=== PATIENT | male | born 1995 | race Caucasian/White ===

== ENCOUNTER 2022-10-10 00:38 | Emergency (ER) | payer BC, OTHER ==
[2022-10-10] MEDS ORDERED: Acetaminophen 325 MG Tab PO ONE (05:12)
== END 2022-10-10 05:30 | disposition home or self-care (01) ==
LOC: MERGE 00:38 → JD.ED 00:38
DX: G50.0 Trigeminal neuralgia (principal)
CPT/HCPCS: 36415; 70450; 70450-26; 80053; 84484; 85025; 85610; 85730; 93005; 99284

== ENCOUNTER 2024-10-21 18:47 | Emergency (ER) | payer BC ==
[2024-10-21] MEDS: predniSONE 20 MG Tab PO ONE (19:41)
[2024-10-21] MEDS: Ketorolac 30 MG/ML SDV IM ONE (19:41)
[2024-10-21] MEDS: Orphenadrine 100 MG Tab.ER PO ONE (19:41)
== END 2024-10-21 21:09 | disposition home or self-care (01) ==
LOC: JD.ED 18:47
DX: M54.42 Lumbago with sciatica, left side (principal); F17.290 Nicotine dependence, other tobacco product, uncomplicated; Z79.899 Other long term (current) drug therapy
CPT/HCPCS: 96372; 99283; A9270; J1885; J7512